=== PATIENT | female | born 1995 | race Caucasian/White ===

== ENCOUNTER 2018-10-16 09:46 | Emergency (ER) | payer MEDICAID, OTHER ==
[2018-10-16 09:52] VITALS: BP 128/86
--- NOTE | 2018-10-16 10:16 | Emergency Department Report ---
<JOE ARROYO - Last Filed: 10/16/18 10:14> ED Female HPI - General Chief complaint: Vaginal Bleeding Stated complaint: CRAMPING/SPOTTING Time Seen by Provider: 10/16/18 10:01 Source: patient Mode of arrival: Ambulatory Limitations: No Limitations - History of Present Illness Initial comments: Patient is a 22-year-old female who is presenting with some suprapubic crampiness and some mild bleeding when she urinates. Patient states for the last 2-3 days she's noticed that when she wipes after urinating she is seeing blood. Patient's last menstrual period was 2 weeks ago was normal. Patient denies dysuria or vaginal discharge. Patient has had some mild nausea and 2 episodes of vomiting yesterday. Patient states symptoms started after taking some cold medicine. Patient's minor cough and congestion has started to resolve. - Related Data Previous Rx's Medication Instructions Recorded Last Taken Type Acetaminophen [Tylenol Extra 500 mg PO TID #30 tablet 10/16/18 Unknown Rx Strength] Allergies Allergy/AdvReac Type Severity Reaction Status Date / Time No Known Allergies Allergy Verified 10/16/18 09:50 ED Review of Systems Comment: All other systems reviewed and negative ED Past Medical Hx - Past Medical History Previous Medical History?: No Hx Hypertension: No Hx Congestive Heart Failure: No Hx Diabetes: No Hx Deep Vein Thrombosis: No Hx Renal Disease: No Hx Sickle Cell Disease: No Hx Seizures: No Hx Asthma: No Hx COPD: No Hx HIV: No - Surgical History Past Surgical History?: No - Social History Smoking Status: Never Smoker Substance Use Type: None - Medications Home Medications: Home Medications Medication Instructions Recorded Confirmed Last Taken Type Acetaminophen [Tylenol Extra 500 mg PO TID #30 tablet 10/16/18 Unknown Rx Strength] ED Physical Exam - General Limitations: No Limitations General appearance: alert, in no apparent distress - Head Head exam: Present: atraumatic, normocephalic - Eye Eye exam: Present: normal appearance - ENT ENT exam: Present: mucous membranes moist - Neck Neck exam: Present: normal inspection - Respiratory Respiratory exam: Present: normal lung sounds bilaterally. Absent: respiratory distress, wheezes, rales, rhonchi - Cardiovascular Cardiovascular Exam: Present: regular rate, normal rhythm. Absent: systolic murmur, diastolic murmur, rubs, gallop - GI/Abdominal GI/Abdominal exam: Present: soft, normal bowel sounds. Absent: distended, tenderness, guarding, rebound - Extremities Exam Extremities exam: Present: normal inspection - Back Exam Back exam: Present: normal inspection - Neurological Exam Neurological exam: Present: alert, oriented X3 - Psychiatric Psychiatric exam: Present: normal affect, normal mood - Skin Skin exam: Present: warm, dry, intact, normal color. Absent: rash ED Disposition Clinical Impression: Pelvic cramping Disposition: - TO HOME OR SELFCARE Condition: Stable Instructions: Dysmenorrhea (ED), Chronic Pelvic Pain in Women (ED), Mittelschmerz (ED) Additional Instructions: Make sure to follow up with the primary care physician as discussed. Take all your medications as you've been prescribed. If you have any worsening symptoms or develop new symptoms please return to ED immediately. Prescriptions: Acetaminophen [Tylenol Extra Strength] 500 mg PO TID #30 tablet Referrals: DINESH SCHMIDT MD [Primary Care Provider] - 3-5 Days MANI GRAYSON MD [Referring] - 3-5 Days Forms: Work/School Release Form(ED) <JOLANTA SPAULDING - Last Filed: 10/16/18 11:47> ED Review of Systems ROS: Stated complaint: CRAMPING/SPOTTING Other details as noted in HPI ED Physical Exam - External exam: Present: normal external exam. Absent: erythema, swelling, lesions Speculum exam: Present: vaginal discharge (clear, mucousy, normal), vaginal bleeding (very small old brownish blood seen in the vaginal vault, no active bleeding). Absent: erythema, tissue, laceration Bi-manual exam: Present: adnexal tenderness. Absent: cervical motion tendernes, uterine enlargement, uterine tenderness ED Course Vital Signs 10/16/18 09:50 Temperature 97.8 F Pulse Rate 92 H Respiratory 16 Rate Blood Pressure 128/86 O2 Sat by Pulse 97 Oximetry ED Medical Decision Making - Medical Decision Making 22-year-old female presents with mild bilateral pelvic cramping Urinalysis negative, urine test is negative, discussed findings with the patient Discussed with the patient that ifshe is worried that she could be she should take another home test in 1 week. Discussed with the patient that ovulatory pain and bleeding is normal in some instances. Vital signs are normal patient is in no acute distress Discussed to take Tylenol as needed for the cramping and if her cycle resumes. Follow-up with environmental department manager or primary care doctor. Vital signs are normal patient is in no acute distress Critical care attestation.: If time is entered above; I have spent that time in minutes in the direct care of this critically ill patient, excluding procedure time. ED Disposition Is pt being admited?: No Does the pt Need Aspirin: No Time of Disposition: 11:44
[2018-10-16 10:38] LABS: Bilirubin,Urine NEG (Negative); Blood,Urine MOD (Negative); Color,Urine Yellow (Yellow); Mucus,Urine 1+ /HPF; Protein,Urine <15 mg/dL mg/dL (Negative)
[2018-10-16 10:54] LABS: HCG Qualitative,Urine Negative (Negative)
== END 2018-10-16 12:03 | disposition home or self-care (01) ==
LOC: ED 09:46
DX: R10.2 Pelvic and perineal pain (principal); R31.9 Hematuria, unspecified; R11.2 Nausea with vomiting, unspecified
CPT/HCPCS: 81001; 81025

== ENCOUNTER 2018-11-30 20:36 | Emergency (ER) | payer MEDICAID, OTHER ==
[2018-11-30 21:10] VITALS: BP 126/69
--- NOTE | 2018-11-30 21:11 | Emergency Department Report ---
Blank Doc - Documentation Documentation: This is a 22 y.o. 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 Patient is 6 weeks gestation. Patient reports bleeding started yesterday. Bleeding started out heavy and spotting. Patient reports pain to pelvic and bilateral flanks started today. See is followed by [facility]. LMP 09/26/2019, A0. Ordered labs. Fast track for further evaluation.
[2018-11-30 21:50] LABS: Basophils # (Auto) 0.1 K/mm3 (0.0-0.1); Basophils % (Auto) 0.7 % (0.0-1.8); Eosinophils # (Auto) 0.1 K/mm3 (0.0-0.4); Eosinophils % (Auto) 1.2 % (0.0-4.3); Hematocrit 37.8 % (30.3-42.9); Hemoglobin 13.1 gm/dl (10.1-14.3); Lymphocytes # (Auto) 2.5 K/mm3 (1.2-5.4); Lymphocytes % (Auto) 36.7 % (13.4-35.0); Mean Corpuscular HGB Conc 35 % (30-34); Mean Corpuscular Volume 93 fl (79-97); Monocytes # (Auto) 0.5 K/mm3 (0.0-0.8); Monocytes % (Auto) 6.5 % (0.0-7.3); Platelet Count 274 K/mm3 (140-440); Red Blood Count 4.09 M/mm3 (3.65-5.03); Red Cell Distribution Width 12.8 % (13.2-15.2)
--- NOTE | 2018-11-30 23:54 | Ultrasound Report ---
PROCEDURE: US OB TRANSVAGINAL TECHNIQUE: Transvaginal imaging was obtained the pelvis including Doppler interrogation of the adnex a. HISTORY: abdominal pain and vaginal bleeding COMPARISONS: None FINDINGS: The uterus measures 8.9 x 6.2 x 7.6 cm. The uterus is a well-formed gestational sac contains a yolk s ac and pole. The crown-rump length is 4.2 mm corresponding to a 6 week 1 day IUP. The hea rt rate is 117 BPM. There is no evidence of subchorionic hemorrhage. There is no evidence of free flu id. The left ovary is normal in size contour and echotexture measuring 2.7 x 0.8 1.8 cm. The blood flow i s normal. The right ovary measures 2.9 x 2.1 x 2.4 cm. Within the right ovary is a complex cyst measuring 2.4 x 1 0.5 to 1.9 cm. The blood flow is normal to the right ovary. IMPRESSION: Single viable IUP, 6 weeks 1 day. The heart rate is 170 BPM. Probable corpus luteum cyst in the right ovary. No evidence of free fluid or adnexal mass.. This document is electronically signed by Lucho Euceda MD., November 30 2018 11:51:31 PM ET
--- NOTE | 2018-11-30 23:57 | Ultrasound Report ---
PROCEDURE: Obstetrical ultrasound. TECHNIQUE: Real-time transabdominal sonography of the uterus, placenta, amniotic fluid, adnexa, and fetus was performed with image documentation. Measurements were obtained to determine age/size. M-mode Doppler was used to document heartbeat. ADDITIONAL GESTATION: None. HISTORY: Abdominal pain and vaginal bleeding. COMPARISONS: None. FINDINGS: Image quality is limited because the bladder was incompletely distended. The uterus measures approxim ately 7.8 cm x 6.9 cm x 6.6 cm. The myometrium appears uniform. There is an intrauterine gestational sac. The mean gestational sac diameter is 1.37 cm. This indicates a menstrual age of 6 weeks 2 days. A definite pole is not visible on these images. Transvaginal imaging should be useful. Neither ovary is identified. IMPRESSION: Limited transabdominal study. Early intrauterine gestational sac. This document is electronically signed by Mahesh Cuello MD., November 30 2018 11:55:08 PM ET
[2018-12-01 02:29] LABS: Bilirubin,Urine Negative (Negative); Blood,Urine Small (Negative); Color,Urine Yellow (Yellow); Protein,Urine <15 mg/dL mg/dL (Negative)
[2018-12-01 02:34] LABS: Mucus,Urine 1+ /HPF
== END 2018-11-30 21:20 | disposition left against medical advice (07) ==
LOC: ED 20:36
DX: O46.91 Antepartum hemorrhage, unspecified, first trimester (principal); Z3A.01 Less than 8 weeks gestation of pregnancy; Z53.21 Procedure and treatment not carried out due to patient leaving prior to being seen by health care provider
CPT/HCPCS: 36415; 76801; 76817; 81001; 84702; 85025; 86850; 86900; 86901

== ENCOUNTER 2019-07-01 16:11 | Inpatient (IN) | payer MEDICAID ==
[2019-07-01] MEDS ORDERED: ePHEDrine SULFATE 50 MG/1 ML INJ IV PRN (18:11)
[2019-07-01] MEDS ORDERED: TERBUTALINE 1 MG/1 ML INJ SUB-Q PRN (18:11)
[2019-07-01] MEDS ORDERED: AMPICILLIN/NS 2 GM/100 ML 2 GM/100 ML BAG IV ONE (18:11)
[2019-07-01] MEDS ORDERED: LIDOCAINE (2%) 20 MG/1 ML VIAL 20 ML MDV INFILTRATI ONE (18:11)
[2019-07-01] MEDS ORDERED: fentaNYL 100 MCG/2 ML INJ IV PRN (18:11)
[2019-07-01] MEDS ORDERED: BETAMET ACET/BETAMET NA PH 6 MG/ML INJ 5 ML MDV IM ONE ×2 (18:14→22:00)
--- NOTE | 2019-07-01 18:16 | History and Physical Report ---
History of Present Illness Date of examination: 07/01/19 Date of admission: 07/01/19 Chief complaint: Contractions History of present illness: 23 year old presents complaining of intermittent contractions for past 24 hours. Denies LOF or VB. Reports good movement. Patient received care at [facility]. Was able to access records from computer. LMP 09/27/18. EDC 07/26/19 (based on 7.1 week US). Uneventful except for vitamin D deficiency (supplemented with vitamin D). labs are as follows: O+, antibody screen negative, rubella immune, varicella immune, hepatitis B surface antigen negative, RPR nonreactive, HIV negative, pap negative, herpes simplex type 2 negative, sickle cell negative, quad screen negative, gonorrhea negative, chlamydia negative, trichomonas negative, 1 hour sugar test 76, GBS unknown (done in office but not resulted yet). Past History Past Medical History: no pertinent history Past Surgical History: no surgical history [facility] History: denies: abnormal PAP smear, chlamydia, gonorrhea, hepatitis B, herpes, HIV, syphilis, trichomonas Family/Genetic History: none Social history: , lives with family, full code. denies: smoking, alcohol abuse, prescription drug abuse, IV drug use - Obstetrical History Expected Date of Delivery: 07/26/19 Actual Gestation: 36 Week(s) 3 Day(s) : 3 Para: 2 Hx # Term Pregnancies: 2 Number of Pregnancies: 0 Spontaneous Abortions: 0 Induced : 0 Number of Living Children: 2 Medications and Allergies Allergies Allergy/AdvReac Type Severity Reaction Status Date / Time No Known Allergies Allergy Verified 10/16/18 09:50 Home Medications Medication Instructions Recorded Confirmed Last Taken Type Acetaminophen [Tylenol Extra 500 mg PO TID #30 tablet 10/16/18 Unknown Rx Strength] Active Meds: Active Medications Betamethasone Acet/Betameth SodPhos (Celestone Soluspan) 12 mg IM ONCE ONE Stop: 07/01/19 18:15 Ephedrine Sulfate (Ephedrine Sulfate) 10 mg IV Q2M PRN PRN Reason: Hypotension Fentanyl (Sublimaze) 100 mcg IV Q2H PRN PRN Reason: Labor Pain Oxytocin/Sodium Chloride (Pitocin/Ns 20 Unit/1000ml Drip) 20 units in 1,000 mls @ 125 mls/hr IV DIRECT TOM Lactated Ringer's (Lactated Ringers) 1,000 mls @ 125 mls/hr IV DIRECT TOM Ampicillin Sodium (Ampicillin/Ns 2 Gm/100 Ml) 2 gm in 100 mls @ 100 mls/hr IV ONCE ONE; Protocol Stop: 07/01/19 19:10 Ampicillin Sodium (Ampicillin/Ns 1 Gm/50 Ml) 1 gm in 50 mls @ 100 mls/hr IV Q4HR TOM; Protocol Lidocaine (Xylocaine 2%) 20 ml INFILTRATI ONCE ONE Stop: 07/01/19 18:12 Terbutaline Sulfate (Brethine) 0.25 mg SUB-Q ONCE PRN PRN Reason: Hyperstimulation/Hypertonicity Review of Systems All systems: negative (contractions) - Vital Signs Vital signs: Vital Signs Pulse Pulse Ox 83 97 07/01/19 17:13 07/01/19 17:13 Temp Pulse Resp BP Pulse Ox 95 H 127/87 97 07/01/19 18:13 07/01/19 18:01 07/01/19 18:13 - Physical Exam Abdomen: Positive: normal appearance, soft. Negative: distention, tenderness, guarding, rigidity Genitourinary (Female): Positive: normal external genitalia, normal perenium. Negative: perineal/vulvar lesions (no lesions seen on careful exam with bright light upon admission) Uterus: Positive: enlarged (s=d). Negative: tender Anus/Rectum: Positive: normal perianal skin Extremities: Positive: normal. Negative: tenderness, edema - Obstetrical Uterine Contraction Monitor Mode: External Cervical Dilatation: 5.5 Cervical Effacement Percentage: 90 station: -1 Uterine Contraction Pattern: Irregular Uterine Contraction Intensity: Mild Results All other labs normal. Assessment and Plan A: at 36 weeks, 3 days gestation. Labor. GBS unknown. P: Admit. Continuous EFM. GBS prophylaxis. Celestone IM. See orders.
[2019-07-01] MEDS ORDERED: OXYTOCIN 20 UNIT/1000ML DRIP 20 UNITS/1,000 ML BAG IV SCH (19:00)
[2019-07-01 19:17] LABS: Hematocrit 35.7 % (30.3-42.9); Hemoglobin 12.2 gm/dl (10.1-14.3); Mean Corpuscular HGB Conc 34 % (30-34); Mean Corpuscular Volume 95 fl (79-97); Platelet Count 241 K/mm3 (140-440); Red Blood Count 3.76 M/mm3 (3.65-5.03); Red Cell Distribution Width 13.6 % (13.2-15.2)
--- NOTE | 2019-07-01 22:53 | Event Note ---
Date: 07/01/19 SVE .
[2019-07-02] MEDS: AMPICILLIN/NS 1 GM/50 ML 1 GM/50 ML BAG IV SCH ×4 (00:32→12:08)
[2019-07-02] MEDS: LACTATED RINGERS 1,000 ML IV SCH ×2 (04:10→14:46)
--- NOTE | 2019-07-02 06:37 | Event Note ---
Date: 07/02/19 SVE 7.5/90/-1/BBOW. Category 1 heart rate tracing. Pitocin augmentation of labor has been ordered and nurse has been notified. Discussed Pitocin augmentation of labor with patient and reviewed risks and benefits. Patient consented to Pitocin augmentation of labor.
[2019-07-02] MEDS ORDERED: OXYTOCIN DRIP 30 UNITS/500 ML BAG IV SCH (07:00)
--- NOTE | 2019-07-02 14:57 | Event Note ---
Date: 07/02/19 SVE 8.5/90/0. AROM with small amount of clear fluid noted. Category 1 heart rate tracing.
[2019-07-02] MEDS ORDERED: MAGNESIUM HYDROXIDE (MOM) ORAL LIQD UDC PO PRN (17:01)
[2019-07-02] MEDS ORDERED: WITCH HAZEL/ GLYCERIN PAD TP PRN (17:01)
[2019-07-02] MEDS ORDERED: HYDROcodone/ACETAMINOPHEN 5-325 MG TAB PO PRN (17:01)
[2019-07-02] MEDS ORDERED: LANOLIN/ZINC/DIMETHICONE (LANSINOH) 7 GM TP PRN (17:01)
--- NOTE | 2019-07-02 17:16 | Procedure Note ---
OB Delivery Note - Delivery Date of Delivery: 07/02/19 Surgeon: ALEJANDRO HOWE Estimated blood loss: 200cc - Vaginal Delivery presentation: vertex Delivery position: OA Intrapartum events: labor-<37 weeks Delivery induction: none Delivery augmentation: rupture of membranes Delivery monitor: external FHT, external uterine Route of delivery: Delivery placenta: spontaneous Delivery cord: nuchal cord, 3 umbilical vessels Episiotomy: none Delivery laceration: none Anesthesia: none Delivery comments: Spontaneous vaginal delivery at 16:09 of liveborn male infant weighing 3076 grams over intact perineum with apgars of 8/9. Nuchal cord times 1, manually reduced. NICU present for delivery since baby was of late gestation. Baby was born vigorous and cried immediately; placed skin to skin with mom immediately after . Bulb suctioned and dried with warm towels. 3 vessel cord double clamped and cut after cessation of pulsation. Cord blood obtained. Spontaneous delivery of intact placenta and membranes by yao mechanism at 16:19. EBL 200 cc. Pitocin to IV fluids after delivery of placenta. Fundus firm and midline. No lacerations noted. Vaginal sweep negative. Sponge count correct. Mother and baby stable in birthing room.
[2019-07-02] MEDS: IBUPROFEN 600 MG TAB PO SCH (22:54)
[2019-07-03] MEDS: IBUPROFEN 600 MG TAB PO SCH ×3 (06:27→13:15)
[2019-07-03 06:30] LABS: Hematocrit 30.3 % (30.3-42.9); Hemoglobin 10.5 gm/dl (10.1-14.3)
--- NOTE | 2019-07-03 11:41 | Progress Note ---
Assessment and Plan A: day 1 S/P spontaneous vaginal delivery. Anemia secondary to and blood loss. P: Supplement with oral iron. Continue current management. Subjective - Subjective Date of service: 07/03/19 Principal diagnosis: day 1 S/P Interval history: day 1 S/P . Doing well. Patient reports small amount of lochia. Voiding without difficulty, ambulating well, tolerating a regular diet. Patient denies headache, cough, chest pain, shortness of breath, abdominal pain, leg pain, nausea or vomiting, or heavy vaginal bleeding. Patient reports: appetite normal, voiding normally, pain well controlled, flatus, ambulating normally, no dizzy ambulation, no nauseated [place]: doing well Objective - Vital Signs Latest vital signs: Vital Signs Temp Pulse Resp BP BP Pulse Ox 07/03/19 09:24 97.9 F 66 20 135/66 97 07/02/19 23:47 98.5 F 93 H 18 114/67 94 07/02/19 18:20 98.3 F 103 H 18 147/87 07/02/19 17:39 97 H 126/78 07/02/19 17:06 86 135/80 07/02/19 17:01 96 H 134/76 07/02/19 16:46 88 134/80 07/02/19 16:31 101 H 135/80 07/02/19 15:49 110 H 98 07/02/19 15:44 105 H 97 07/02/19 15:39 112 H 97 07/02/19 15:34 98 H 98 07/02/19 15:29 98 H 97 07/02/19 15:24 73 99 07/02/19 15:19 98 H 97 07/02/19 15:18 88 143/83 07/02/19 15:14 115 H 98 07/02/19 15:09 79 97 07/02/19 15:04 94 H 142/84 98 07/02/19 13:18 87 132/78 07/02/19 12:52 89 97 07/02/19 12:47 89 96 07/02/19 12:42 88 97 07/02/19 12:37 84 96 07/02/19 12:32 89 97 07/02/19 12:27 78 98 07/02/19 12:22 87 97 07/02/19 12:18 88 127/90 07/02/19 12:17 87 97 07/02/19 12:12 88 98 07/02/19 12:10 97.5 F L 16 07/02/19 12:07 86 97 07/02/19 12:02 85 97 07/02/19 11:57 106 H 97 07/02/19 11:52 88 98 07/02/19 11:47 80 97 07/02/19 11:41 83 97 Intake and Output 07/02/19 07/03/19 07/03/19 23:59 07:59 15:59 Intake Total 240 240 Output Total 400 600 Balance -160 -360 Intake: Oral 240 240 Output: Urine 400 600 Void 400 600 Other: Total, Intake Amount 240 240 Total, Output Amount 400 600 Estimated Blood Loss 200 - Exam Cardiovascular: Present: Regular rate, Normal S1, Normal S2, No murmurs Lungs: Present: Clear to auscultation Abdomen: Present: normal appearance, soft, normal bowel sounds. Absent: distention, tenderness, guarding, rigidity Uterus: Present: normal, firm, fundal height below umbilicus. Absent: bogginess, tenderness Extremities: Present: normal. Absent: tenderness, edema
[2019-07-03] MEDS ORDERED: DOCUSATE SODIUM 100 MG CAP ONE (13:01)
[2019-07-03] MEDS: FERROUS SULFATE 325 MG TAB PO SCH (13:15)
[2019-07-03] MEDS ORDERED: DOCUSATE SODIUM 100 MG CAP PO SCH (22:00)
--- NOTE | 2019-07-04 07:34 | Progress Note ---
Assessment and Plan A: day 2 S/P spontaneous vaginal delivery. Anemia secondary to and blood loss. P: Discharge patient home today. Discussed with patient discharge instructions and warning signs. Advised pt. to continue taking her vitamin and iron supplements at home. Advised pt. to avoid IC and lifting and to follow up at [facility] in 6 weeks for exam. Patient voiced understanding of instructions. Subjective - Subjective Date of service: 07/04/19 Principal diagnosis: day 2 S/P Interval history: day 2 S/P . Doing well. Desires discharge today. Patient reports small amount of lochia. Voiding without difficulty, ambulating well, tolerating a regular diet. Patient denies headache, cough, chest pain, shortness of breath, abdominal pain, leg pain, nausea or vomiting, or heavy vaginal bleeding. Patient reports: appetite normal, voiding normally, pain well controlled, ambulating normally, no dizzy ambulation, no nauseated [place]: doing well Objective - Vital Signs Latest vital signs: Vital Signs Temp Pulse Resp BP BP Pulse Ox 07/03/19 23:30 98.8 F 78 19 111/70 07/03/19 16:57 97.9 F 83 18 111/59 98 07/03/19 12:12 98.2 F 91 H 20 120/78 98 07/03/19 09:24 97.9 F 66 20 135/66 97 Intake and Output 07/03/19 07/03/19 07/04/19 15:59 23:59 07:59 Intake Total 300 Balance 300 Intake: Intake, Free Water 300 Other: # Voids Void 1 1 - Exam Cardiovascular: Present: Regular rate, Normal S1, Normal S2, No murmurs Lungs: Present: Clear to auscultation Abdomen: Present: normal appearance, soft. Absent: distention, tenderness, guarding, rigidity Uterus: Present: normal, firm, fundal height below umbilicus. Absent: bogginess, tenderness Extremities: Present: normal. Absent: tenderness, edema
--- NOTE | 2019-07-04 07:37 | Discharge Summary ---
Providers - Providers Date of Admission: 07/01/19 18:11 Date of discharge: 07/04/19 Attending physician: BETITO REHMAN MD None Primary care physician: BETITO REHMAN MD Hospitalization Reason for admission: labor Delivery: Episiotomy: none Laceration: none Other procedures: none complications: none Discharge diagnosis: delivery baby: male Pertinent studies: Labs Hospital course: Normal hospital course. Condition at discharge: Good Disposition: DC-01 TO HOME OR SELFCARE - Discharge Diagnoses (1) delivery Status: Acute (2) Anemia due to blood loss Status: Acute Plan - Provider Discharge Summary Activity: routine, no sex for 6 weeks, no heavy lifting 4 weeks, no strenuous exercise Diet: routine Instructions: routine Additional instructions: Continue taking your vitamin and iron supplements at home. Call your doctor immediately for: * Fever > 100.5 * Heavy vaginal bleeding ( >1 pad per hour) * Severe persistent headache * Shortness of breath * Reddened, hot, painful area to leg or breast - Follow up plan Follow up: BETITO REHMAN MD [Primary Care Provider] - 6 Weeks Forms: [facility] Discharge Summary
[2019-07-04] MEDS: FERROUS SULFATE 325 MG TAB PO SCH (10:06)
[2019-07-04] MEDS: IBUPROFEN 600 MG TAB PO SCH (10:07)
[2019-07-04 13:32] VITALS: BP 116/73
== END 2019-07-04 16:30 | disposition home or self-care (01) | DRG 775 ==
LOC: TRG 16:11 → LD 16:12 → TRG 18:11 → LD 07-02 16:39 → TRG 07-02 16:39 → OB 07-02 19:40
PROVIDERS: ADMIT Obstetrics & Gynecology; ATTEND Obstetrics & Gynecology
PROC: 10E0XZZ Delivery of Products of Conception, External Approach (ICD-10-PCS; principal; 2019-07-02)
PROC: 10907ZC Drainage of Amniotic Fluid, Therapeutic from Products of Conception, Via Natural or Artificial Opening (ICD-10-PCS; 2019-07-02)
DX: O60.14X0 Preterm labor third trimester with preterm delivery third trimester, not applicable or unspecified (principal); O99.02 Anemia complicating childbirth; D64.9 Anemia, unspecified; O69.1XX0 Labor and delivery complicated by cord around neck, with compression, not applicable or unspecified; Z3A.36 36 weeks gestation of pregnancy; Z37.0 Single live birth; Z79.899 Other long term (current) drug therapy
CPT/HCPCS: 36415; 85014; 85018; 85027; 86592; 86850; 86900; 86901; G0378; J0290; J0702; J2590; J7120

== ENCOUNTER 2021-10-21 16:01 | Emergency (ER) | payer MEDICAID ==
[2021-10-21 18:40] LABS: Bilirubin,Urine NEG (Negative); Blood,Urine LG (Negative); Color,Urine Yellow (Yellow); HCG Qualitative,Urine Negative (Negative); Mucus,Urine FEW /HPF; Urobilinogen,Urine < 2.0 mg/dL (<2.0)
[2021-10-21 18:41] LABS: RBC,Urine > 182.0 /HPF (0.0-6.0)
--- NOTE | 2021-10-21 19:05 | Emergency Department Report ---
ED Female HPI - General Chief complaint: Vaginal Bleeding Stated complaint: PREG,SOB,CRAMPS Time Seen by Provider: 10/21/21 18:10 Source: patient Mode of arrival: Ambulatory Limitations: No Limitations - History of Present Illness Initial comments: Patient is a 25-year-old female presents emergency room complaints of vaginal bleeding that began today. She states that she is also having some lower back discomfort and lower abdominal cramping. She states that it feels like she is having a menstrual cycle. She states a week ago she took [id number] test and reports it was positive. She has not had this confirmed. She denies any fever, nausea, vomiting, diarrhea, urinary symptoms. Patient denies any past medical history. No allergies to medications. Last menstrual cycle 09/16/2021. /P: 3/A: 0 - Related Data Home Medications Medication Instructions Recorded Confirmed Last Taken Vit-Fe Fumar-FA [ 1 tab PO QDAY 07/01/19 07/01/19 07/01/19 09:00 Vitamin] Previous Rx's Medication Instructions Recorded Last Taken Type Acetaminophen [Tylenol Extra 500 mg PO TID #30 tablet 10/16/18 Unknown Rx Strength] Allergies Allergy/AdvReac Type Severity Reaction Status Date / Time No Known Allergies Allergy Verified 10/16/18 09:50 ED Review of Systems ROS: Stated complaint: PREG,SOB,CRAMPS Other details as noted in HPI Comment: All other systems reviewed and negative ED Past Medical Hx - Past Medical History Previous Medical History?: No Hx Hypertension: No Hx Congestive Heart Failure: No Hx Diabetes: No Hx Deep Vein Thrombosis: No Hx Renal Disease: No Hx Sickle Cell Disease: No Hx Seizures: No Hx Asthma: No Hx COPD: No Hx HIV: No - Surgical History Past Surgical History?: No - Social History Smoking Status: Never Smoker - Medications Home Medications: Home Medications Medication Instructions Recorded Confirmed Last Taken Type Acetaminophen [Tylenol Extra 500 mg PO TID #30 tablet 10/16/18 07/01/19 Unknown Rx Strength] Vit-Fe Fumar-FA [ 1 tab PO QDAY 07/01/19 07/01/19 07/01/19 09:00 History Vitamin] ED Physical Exam - General Limitations: No Limitations General appearance: alert, in no apparent distress - Head Head exam: Present: atraumatic, normocephalic - Eye Eye exam: Present: normal appearance - ENT ENT exam: Present: mucous membranes moist - Respiratory Respiratory exam: Present: normal lung sounds bilaterally. Absent: respiratory distress, wheezes, rales, rhonchi, stridor, chest wall tenderness, accessory muscle use, decreased breath sounds, prolonged expiratory - Cardiovascular Cardiovascular Exam: Present: regular rate, normal rhythm, normal heart sounds. Absent: systolic murmur, diastolic murmur, rubs, gallop - GI/Abdominal GI/Abdominal exam: Present: soft, normal bowel sounds. Absent: distended, tenderness, guarding, rebound, rigid - Neurological Exam Neurological exam: Present: alert, oriented X3 - Psychiatric Psychiatric exam: Present: normal affect, normal mood - Skin Skin exam: Present: warm, dry, intact ED Course Vital Signs 10/21/21 17:28 Temperature 98.5 F Pulse Rate 81 Respiratory 16 Rate Blood Pressure 133/78 [Left] O2 Sat by Pulse 100 Oximetry ED Medical Decision Making - Lab Data Result diagrams: 10/21/21 18:44 10/21/21 18:44 Lab Results 10/21/21 10/21/21 10/21/21 Range/Units 18:44 18:44 18:44 WBC 6.6 (4.5-11.0) K/mm3 RBC 4.44 (3.65-5.03) M/mm3 Hgb 13.8 (10.1-14.3) gm/dl Hct 41.0 (30.3-42.9) % MCV 93 (79-97) fl MCH 31 (28-32) pg MCHC 34 (30-34) % RDW 12.8 L (13.2-15.2) % Plt Count 296 (140-440) K/mm3 Lymph % (Auto) 37.4 H (13.4-35.0) % [place] % (Auto) 6.0 (0.0-7.3) % Eos % (Auto) 2.0 (0.0-4.3) % Baso % (Auto) 0.9 (0.0-1.8) % Lymph # (Auto) 2.5 (1.2-5.4) K/mm3 [place] # (Auto) 0.4 (0.0-0.8) K/mm3 Eos # (Auto) 0.1 (0.0-0.4) K/mm3 Baso # (Auto) 0.1 (0.0-0.1) K/mm3 Seg Neutrophils % 53.7 (40.0-70.0) % Seg Neutrophils # 3.6 (1.8-7.7) K/mm3 Sodium 141 (137-145) mmol/L Potassium 4.5 (3.6-5.0) mmol/L Chloride 106.0 (98-107) mmol/L Carbon Dioxide 21 L (22-30) mmol/L Anion Gap 19 mmol/L BUN 16 (7-17) mg/dL Creatinine 0.6 (0.6-1.2) mg/dL Estimated GFR > 60 ml/min BUN/Creatinine Ratio 27 % Glucose 91 (65-100) mg/dL Calcium 9.9 (8.4-10.2) mg/dL Total Bilirubin 0.20 (0.1-1.2) mg/dL AST 19 (5-40) units/L ALT 22 (7-56) units/L Alkaline Phosphatase 90 (35-129) units/L Total Protein 7.5 (6.3-8.2) g/dL Albumin 4.9 (3.9-5) g/dL Albumin/Globulin Ratio 1.9 % HCG, Quant 3.61 (0-4) mIU/mL Urine Color (Yellow) Urine Turbidity (Clear) Urine pH (5.0-7.0) Ur Specific [place] (1.003-1.030) Urine Protein (Negative) mg/dL Urine Glucose (UA) (Negative) mg/dL Urine Ketones (Negative) mg/dL Urine Blood (Negative) Urine Nitrite (Negative) Urine Bilirubin (Negative) Urine Urobilinogen (<2.0) mg/dL Ur Leukocyte Esterase (Negative) Urine WBC (Auto) (0.0-6.0) /HPF Urine RBC (Auto) (0.0-6.0) /HPF U Epithel Cells (Auto) (0-13.0) /HPF Urine Mucus /HPF Urine HCG, Qual (Negative) Blood Type 10/21/21 10/21/21 Range/Units 18:44 Unknown WBC (4.5-11.0) K/mm3 RBC (3.65-5.03) M/mm3 Hgb (10.1-14.3) gm/dl Hct (30.3-42.9) % MCV (79-97) fl MCH (28-32) pg MCHC (30-34) % RDW (13.2-15.2) % Plt Count (140-440) K/mm3 Lymph % (Auto) (13.4-35.0) % [place] % (Auto) (0.0-7.3) % Eos % (Auto) (0.0-4.3) % Baso % (Auto) (0.0-1.8) % Lymph # (Auto) (1.2-5.4) K/mm3 [place] # (Auto) (0.0-0.8) K/mm3 Eos # (Auto) (0.0-0.4) K/mm3 Baso # (Auto) (0.0-0.1) K/mm3 Seg Neutrophils % (40.0-70.0) % Seg Neutrophils # (1.8-7.7) K/mm3 Sodium (137-145) mmol/L Potassium (3.6-5.0) mmol/L Chloride (98-107) mmol/L Carbon Dioxide (22-30) mmol/L Anion Gap mmol/L BUN (7-17) mg/dL Creatinine (0.6-1.2) mg/dL Estimated GFR ml/min BUN/Creatinine Ratio % Glucose (65-100) mg/dL Calcium (8.4-10.2) mg/dL Total Bilirubin (0.1-1.2) mg/dL AST (5-40) units/L ALT (7-56) units/L Alkaline Phosphatase (35-129) units/L Total Protein (6.3-8.2) g/dL Albumin (3.9-5) g/dL Albumin/Globulin Ratio % HCG, Quant (0-4) mIU/mL Urine Color Yellow (Yellow) Urine Turbidity Slightly-cloudy (Clear) Urine pH 5.0 (5.0-7.0) Ur Specific [place] 1.029 (1.003-1.030) Urine Protein 30 mg/dl (Negative) mg/dL Urine Glucose (UA) Neg (Negative) mg/dL Urine Ketones Tr (Negative) mg/dL Urine Blood Lg (Negative) Urine Nitrite Neg (Negative) Urine Bilirubin Neg (Negative) Urine Urobilinogen < 2.0 (<2.0) mg/dL Ur Leukocyte Esterase Neg (Negative) Urine WBC (Auto) 11.0 H (0.0-6.0) /HPF Urine RBC (Auto) > 182.0 (0.0-6.0) /HPF U Epithel Cells (Auto) 3.0 (0-13.0) /HPF Urine Mucus Few /HPF Urine HCG, Qual Negative (Negative) Blood Type O POSITIVE - Medical Decision Making Patient is a 25-year-old female presents emergency room complaints of vaginal bleeding that began today. She states that she is also having some lower back discomfort and lower abdominal cramping. She states that it feels like she is having a menstrual cycle. She states a week ago she took [id number] test and reports it was positive. She has not had this confirmed. She denies any fever, nausea, vomiting, diarrhea, urinary symptoms. Patient denies any past medical history. No allergies to medications. Last menstrual cycle 09/16/2021. /P: 3/A: 0. Vitals are stable. hCG quant is less than 4 which according to our laboratory results is negative. Urine pre gnancy is negative. labs are stable. h/h is stable. UA shows RBCs and small amount of WBCs no leukocyte esterase, no nitrites, likely contamination from blood, do not suspect UTI. advised pt May take Tylenol or ibuprofen as needed for any discomfort. Follow-up with DIRECTOR RADIO NEWS regarding your irregular menstrual cycle. Return to emergency room for any new or worsening symptoms. Critical care attestation.: If time is entered above; I have spent that time in minutes in the direct care of this critically ill patient, excluding procedure time. ED Disposition Clinical Impression: Irregular menses Disposition: 01 HOME / SELF CARE / HOMELESS Is pt being admited?: No Does the pt Need Aspirin: No Condition: Stable Instructions: Abnormal Uterine Bleeding Additional Instructions: May take Tylenol or ibuprofen as needed for any discomfort. Follow-up with DIRECTOR RADIO NEWS regarding your irregular menstrual cycle. Return to emergency room for any new or worsening symptoms. Referrals: SHANIKA COX MD [Staff Physician] - 3-5 Days Time of Disposition: 19:47 Print Language: SINHAL[place]
[2021-10-21 19:16] LABS: Basophils # (Auto) 0.1 K/mm3 (0.0-0.1); Basophils % (Auto) 0.9 % (0.0-1.8); Eosinophils # (Auto) 0.1 K/mm3 (0.0-0.4); Hemoglobin 13.8 gm/dl (10.1-14.3); Lymphocytes # (Auto) 2.5 K/mm3 (1.2-5.4); Lymphocytes % (Auto) 37.4 % (13.4-35.0); Mean Corpuscular HGB Conc 34 % (30-34); Mean Corpuscular Volume 93 fl (79-97); Monocytes # (Auto) 0.4 K/mm3 (0.0-0.8); Platelet Count 296 K/mm3 (140-440); Red Blood Count 4.44 M/mm3 (3.65-5.03); Red Cell Distribution Width 12.8 % (13.2-15.2)
[2021-10-21 19:40] LABS: Alanine Aminotransferase 22 units/L (7-56); Albumin 4.9 g/dL (3.9-5); Blood Urea Nitrogen 16 mg/dL (7-17); Calcium 9.9 mg/dL (8.4-10.2); Hemolysis Index 19
[2021-10-21 19:41] LABS: BUN/Creatinine Ratio 27
[2021-10-21 21:18] VITALS: BP 122/86
== END 2021-10-21 20:25 | disposition home or self-care (01) ==
LOC: ED 16:01
DX: N92.6 Irregular menstruation, unspecified (principal); Z79.899 Other long term (current) drug therapy
CPT/HCPCS: 36415; 80053; 81001; 81025; 84702; 85025; 86900; 86901; 87086; 99283